=== PATIENT | male | born 1965 | race Caucasian/White ===

== ENCOUNTER 2018-01-06 10:32 | Emergency (ER) | payer MEDICAID ==
[~2018-01-06] VITALS: Ht 177.8 cm; Wt 90.7 kg
[2018-01-06 10:37] VITALS: BP_SYST 120
[2018-01-06] MEDS ORDERED: NACL 0.9% 1,000 ML IV ONE (11:00)
[2018-01-06] MEDS ORDERED: MORPHINE 4 MG/ML INJ. SYRINGE IVP ONE (11:00)
[2018-01-06] MEDS ORDERED: TAMSULOSIN HCL 0.4 MG CAP PO ONE (12:15)
[2018-01-06] MEDS ORDERED: LACTULOSE 20 GM/30 ML UDC PO ONE (12:30)
[2018-01-06 13:05] VITALS: BP_SYST 120
[2018-01-06 13:20] LABS: BILIRUBIN,URINE NEGATIVE (NEGATIVE); BLOOD, URINE NEGATIVE (NEGATIVE); CLARITY/URINE CLEAR (CLEAR); COLOR,URINE YELLOW (YELLOW); GLUCOSE,URINE NEGATIVE (NEGATIVE); KETONES,URINE NEGATIVE (NEGATIVE); LEUKOCYTE ESTERASE ,URINE NEGATIVE (NEGATIVE); NITRITE, URINE NEGATIVE (NEGATIVE); PROTEIN URINE NEGATIVE (NEGATIVE); UROBILINOGEN,URINE 0.2 (0.2-1.0)
== END 2018-01-06 13:05 | disposition home or self-care (01) ==
LOC: SED 10:32
DX: R33.9 Retention of urine, unspecified (principal); K59.00 Constipation, unspecified
CPT/HCPCS: 74176; 81003; 96374; 99285; J2270; J7030

== ENCOUNTER 2018-07-29 03:07 | Emergency (ER) | payer MEDICAID ==
[~2018-07-29] VITALS: Ht 177.8 cm; Wt 86.2 kg
[2018-07-29 03:27] VITALS: BP_SYST 130
[2018-07-29] MEDS ORDERED: AMPICILLIN SODIUM/SULBACTAM NA 3 GM in NS 100 ML IV ONE (03:45)
[2018-07-29] MEDS ORDERED: KETOROLAC TROMETHAMINE 30 MG VIAL IVP ONE (03:45)
[2018-07-29] MEDS ORDERED: AMPICILLIN SODIUM/SULBACTAM NA 3 GM VIAL ONE (04:05)
[2018-07-29 06:06] VITALS: BP_SYST 132
== END 2018-07-29 06:06 | disposition home or self-care (01) ==
LOC: SED 03:07
DX: L03.115 Cellulitis of right lower limb (principal); Z87.442 Personal history of urinary calculi; Z90.49 Acquired absence of other specified parts of digestive tract
CPT/HCPCS: 96365; 96375; 99283; J0295; J1885

== ENCOUNTER 2018-12-01 12:06 | Emergency (ER) | payer MEDICAID ==
[~2018-12-01] VITALS: Ht 177.8 cm; Wt 86.2 kg
[2018-12-01 12:06] VITALS: BP_SYST 129
--- NOTE | 2018-12-01 12:22 | NUR ---
Patient to ER bed 08 to gown for evaluation. Side rails up.
--- NOTE | 2018-12-01 12:24 | NUR ---
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
--- NOTE | 2018-12-01 12:27 | NUR ---
Dr Michel at bedside examining patient
[2018-12-01] MEDS ORDERED: IBUPROFEN 800 MG TABLET PO ONE (12:30)
[2018-12-01 12:47] VITALS: BP_SYST 122
--- NOTE | 2018-12-01 12:50 | NUR ---
Patient given written and verbal discharge instructions and verbalizes understanding. ER MD discussed with patient the results and treatment provided. Patient in stable condition. ID arm band removed. Rx of Ibuprofen given. Patient educated on pain management and to follow up with PMD. Pain Scale 5/10 tolerable for patient. Opportunity for questions provided and answered. Medication side effect fact sheet provided.
== END 2018-12-01 12:50 | disposition home or self-care (01) ==
LOC: SED 12:06
DX: M25.561 Pain in right knee (principal); R03.0 Elevated blood-pressure reading, without diagnosis of hypertension; Z87.442 Personal history of urinary calculi
CPT/HCPCS: 99282

== ENCOUNTER 2020-03-19 03:14 | Emergency (ER) | payer MEDICAID ==
[~2020-03-19] VITALS: Ht 177.8 cm; Wt 90.7 kg
[2020-03-19 03:40] VITALS: BP_SYST 139
[2020-03-19] MEDS ORDERED: IBUPROFEN 800 MG TABLET PO ONE (04:15)
[2020-03-19 04:52] VITALS: BP_SYST 126
== END 2020-03-19 04:52 | disposition home or self-care (01) ==
LOC: SED 03:14
DX: M25.511 Pain in right shoulder (principal); Z90.49 Acquired absence of other specified parts of digestive tract
CPT/HCPCS: 73030; 99283

== ENCOUNTER 2020-10-16 22:04 | Emergency (ER) | payer MEDICAID ==
[~2020-10-16] VITALS: Ht 177.8 cm; Wt 90.7 kg
[2020-10-16 22:10] VITALS: BP_SYST 157
[2020-10-16] MEDS ORDERED: IBUP-1969 PO (22:31)
[2020-10-16] MEDS ORDERED: CEPH250C PO (22:31)
[2020-10-16 22:36] VITALS: BP_SYST 157
== END 2020-10-16 22:36 | disposition home or self-care (01) ==
LOC: SED 22:04
DX: L03.114 Cellulitis of left upper limb (principal); Z87.442 Personal history of urinary calculi; W57.XXXA Bitten or stung by nonvenomous insect and other nonvenomous arthropods, initial encounter; Y93.89 Activity, other specified; Y92.89 Other specified places as the place of occurrence of the external cause; Y99.8 Other external cause status
CPT/HCPCS: 99283

== ENCOUNTER 2021-03-01 21:28 | Emergency (ER) | payer MEDICAID, SELFPAY ==
[~2021-03-01] VITALS: Ht 177.8 cm; Wt 90.7 kg
[~2021-03-01 21:28] MED LIST: CEPH250C PO; IBUP-1969 PO
[2021-03-01 22:00] VITALS: BP_SYST 151
--- NOTE | 2021-03-01 22:20 | NUR ---
PT TO REMAIN IN ER TENT UNTIL ER BED BECOMES AVAILABLE.
--- NOTE | 2021-03-01 22:25 | NUR ---
PT AAO AND AMBULATORY REPORTING WORSENING COUGH AND BODY ACHES FOR THE LAST 4 DAYS. PT NEEDS COVID TEST TO RETURN TO WORK. V/S STABLE AND SPO2 97-99%.
--- NOTE | 2021-03-01 22:38 | NUR ---
DR. ANNE TO TENT TO ASSESS.
[2021-03-01] MEDS ORDERED: ALBMDI INH (23:47)
[2021-03-01] MEDS ORDERED: PROM473S6 PO (23:47)
[2021-03-01 23:55] VITALS: BP_SYST 151
--- NOTE | 2021-03-01 23:59 | NUR ---
Patient given written and verbal discharge instructions and verbalizes understanding. DR. DAYANA VO MD discussed with patient the results and treatment provided. Patient in stable condition. ID arm band removed. Rx PER MD. Patient educated on pain management and to follow up with PMD. Pain Scale 0/10. Opportunity for questions provided and answered. Medication side effect fact sheet provided.
== END 2021-03-01 23:59 | disposition home or self-care (01) ==
LOC: SED 21:28
DX: J20.8 Acute bronchitis due to other specified organisms (principal); R00.2 Palpitations; F12.90 Cannabis use, unspecified, uncomplicated; Z79.899 Other long term (current) drug therapy; Z20.822 Contact with and (suspected) exposure to COVID-19
CPT/HCPCS: 36415; 71045; 93005; 99284

== ENCOUNTER 2022-05-14 08:06 | Emergency (ER) | payer MEDICAID ==
[~2022-05-14] VITALS: Ht 177.8 cm; Wt 68.0 kg
[~2022-05-14 08:06] MED LIST changes: +ALBMDI INH; +PROM473S6 PO
--- NOTE | 2022-05-14 08:25 | NUR ---
Patient to ER bed 7 to gown for evaluation. Side rails up. Report given to .
[2022-05-14 08:29] VITALS: BP_SYST 149
--- NOTE | 2022-05-14 08:30 | NUR ---
ER Dr. Edwards at bedside examining patient.
--- NOTE | 2022-05-14 08:33 | NUR ---
RECEIVED PT FROM NINA HAYDEN. PT BIBS FOR C/O AB PAIN TO RIGHT QUADRANT, NAUSEA X 1 DAY. PT IS AAOX4. ON R/A. SKIN WARM, INTACT. SITE WNL. SIDERAILS UP X2.
[2022-05-14] MEDS ORDERED: MORPHINE 4 MG INJ. 4 MG/ML VIAL IVP ONE ×2 (08:45→12:15)
--- NOTE | 2022-05-14 08:55 | NUR ---
# 20 gauge angiocath placed toRFA. Use of asceptic technique. Opsite placed over site. Blood return noted. Flushed with 10 cc of normal saline. No evidence of infiltration noted. Patient tolerated well.
[2022-05-14 09:16] LABS: BASOPHILS # (AUTO) 0.1 K/uL (0.0-0.2); EOSINOPHILS # (AUTO) 0.2 K/uL (0.0-0.4); HEMATOCRIT 45.7 % (36-54); HEMOGLOBIN 15.5 g/dL (14.0-18.0); LYMPHOCYTES # (AUTO) 0.8 K/uL (1.0-5.5); LYMPHOCYTES % (AUTO) 13.5 % (20.5-51.5); MEAN CORPUSCULAR HEMOGLOBIN 31 pg (27-31); MEAN CORPUSCULAR HGB CONC 34 % (32-36); MEAN CORPUSCULAR VOLUME 91 fL (79.0-98.0); MONOCYTES # (AUTO) 0.7 K/uL (0.0-1.0); NEUTROPHILS # (AUTO) 4.4 K/uL (1.8-7.7); NEUTROPHILS % (AUTO) 71.5 % (40.0-70.0); PLATELET COUNT (AUTO) 203 K/uL (130-430); RED BLOOD CELL COUNT(AUTO) 5.04 MIL/uL (4.2-6.2); RED CELL DISTRIBUTION WIDTH 13.7 % (9.0-15.0); WHITE BLOOD COUNT (AUTO) 6.1 K/uL (4.8-10.8)
--- NOTE | 2022-05-14 09:24 | NUR ---
MORPHINE 4MG IVP GIVEN FOR AB PAIN 9.10. URINE OBTAINED.
[2022-05-14 09:32] LABS: CALCIUM 8.7 mg/dL (8.4-11.0); CREATININE 1.08 mg/dL (0.55-1.30)
[2022-05-14 09:49] LABS: ALBUMIN 3.6 g/dL (3.4-4.8)
[2022-05-14 09:54] LABS: BILIRUBIN,URINE NEGATIVE (NEGATIVE); BLOOD, URINE 1+ (NEGATIVE); CLARITY/URINE CLEAR (CLEAR); COLOR,URINE YELLOW (YELLOW); GLUCOSE,URINE NEGATIVE (NEGATIVE); KETONES,URINE NEGATIVE (NEGATIVE); LEUKOCYTE ESTERASE ,URINE NEGATIVE (NEGATIVE); NITRITE, URINE NEGATIVE (NEGATIVE); PROTEIN URINE NEGATIVE (NEGATIVE); UROBILINOGEN,URINE 0.2 (0.2-1.0)
[2022-05-14 10:49] LABS: BACTERIA,URINE None Seen /HPF (None Seen); MUCUS,URINE None Seen /LPF (None Seen); WBC,URINE 0-3 /HPF (0-3)
[2022-05-14] MEDS ORDERED: NACL 0.9% 1,000 ML IV ONE (12:15)
--- NOTE | 2022-05-14 12:27 | NUR ---
Pt medicated as ordered, well tolerated
[2022-05-14] MEDS ORDERED: HYDR-3919 PO (12:29)
[2022-05-14 12:50] VITALS: BP_SYST 133
--- NOTE | 2022-05-14 12:52 | NUR ---
Patient given written and verbal discharge instructions and verbalizes understanding. ER MD discussed with patient the results and treatment provided. Patient in stable condition. ID arm band removed. IV catheter removed intact and dressing applied, no active bleeding. Rx of NORCO given. Patient educated on pain management and to follow up with PMD. Pain Scale 0/10. Opportunity for questions provided and answered. Medication side effect fact sheet provided.
== END 2022-05-14 12:52 | disposition home or self-care (01) ==
LOC: SED 08:06
DX: K42.9 Umbilical hernia without obstruction or gangrene (principal); R10.9 Unspecified abdominal pain; Z79.899 Other long term (current) drug therapy; Z20.822 Contact with and (suspected) exposure to COVID-19
CPT/HCPCS: 99285; 74177; 96374; 96361; 87426; 80053; 81000; 83690; 85025; 36415; 76376; 96376; J2270; Q9967; J7030

== ENCOUNTER 2023-06-26 10:28 | Emergency (ER) | payer MEDICAID ==
[~2023-06-26] VITALS: Ht 177.8 cm; Wt 90.7 kg
[~2023-06-26 10:28] MED LIST changes: +HYDR-3919 PO
[2023-06-26 10:29] VITALS: BP_SYST 131; PULSE 68; RESP 20; TEMP 97.8; O2SAT 98
[2023-06-26] MEDS ORDERED: NIRM1TAB PO (12:36)
== END 2023-06-26 12:50 | disposition home or self-care (01) ==
LOC: SED 10:28
DX: U07.1 COVID-19 (principal); R05.9 Cough, unspecified; R09.81 Nasal congestion; M79.10 Myalgia, unspecified site; F17.200 Nicotine dependence, unspecified, uncomplicated; Z79.899 Other long term (current) drug therapy
CPT/HCPCS: 99283

== ENCOUNTER 2024-04-03 20:29 | Emergency (ER) | payer MEDICAID ==
[~2024-04-03] VITALS: Ht 177.8 cm; Wt 90.7 kg
[~2024-04-03 20:29] MED LIST changes: +NIRM1TAB PO; +PROM473S4 PO; -PROM473S6 PO
[2024-04-03 20:32] VITALS: BP_SYST 115; PULSE 116; RESP 19; TEMP 98.4; O2SAT 86
[2024-04-03 21:31] LABS: BASOPHILS # (AUTO) 0.2 K/uL (0.0-0.2); BASOPHILS % (AUTO) 2.5 % (0.0-2.0); EOSINOPHILS # (AUTO) 0.1 K/uL (0.0-0.4); EOSINOPHILS % (AUTO) 1.3 % (0.0-4.0); HEMATOCRIT 50.5 % (36-54); HEMOGLOBIN 17.3 g/dL (14.0-18.0); LYMPHOCYTES % (AUTO) 20.9 % (20.5-51.5); MEAN CORPUSCULAR HEMOGLOBIN 31 pg (27-31); MEAN CORPUSCULAR HGB CONC 34 % (32-36); MEAN CORPUSCULAR VOLUME 91 fL (79.0-98.0); MONOCYTES # (AUTO) 0.9 K/uL (0.0-1.0); MONOCYTES % (AUTO) 9.8 % (1.7-9.3); NEUTROPHILS # (AUTO) 6.2 K/uL (1.8-7.7); NEUTROPHILS % (AUTO) 65.5 % (40.0-70.0); PLATELET COUNT (AUTO) 223 K/uL (130-430); RED BLOOD CELL COUNT(AUTO) 5.57 MIL/uL (4.2-6.2); RED CELL DISTRIBUTION WIDTH 13.3 % (9.0-15.0); WHITE BLOOD COUNT (AUTO) 9.4 K/uL (4.8-10.8)
[2024-04-03 21:37] LABS: ALANINE AMINOTRANSFERASE 46 U/L (12-78); ALBUMIN 3.6 g/dL (3.4-4.8); ANION GAP 10 (5-15); ASPARTATE AMINOTRANSFERASE 41 U/L (10-37); CALCIUM 10.1 mg/dL (8.4-11.0); CARBON DIOXIDE 25 mmol/L (23-29); CHLORIDE 100 mmol/L (98-107); CREATININE 1.83 mg/dL (0.55-1.30); GFR AFRICAN AMERICAN 49 mL/min (>90); GLUCOSE 119 mg/dL (74-106); POTASSIUM 3.9 mmol/L (3.5-5.1); SODIUM SERUM 135 mmol/L (136-145); TOTAL PROTEIN, SERUM 7.4 g/dL (6.4-8.3); UREA NITROGEN, BLOOD 22 mg/dL (8-21)
[2024-04-03 21:38] LABS: GFR NON AFRICAN-AMERICAN 41 mL/min (>90)
[2024-04-03 21:39] LABS: COVID19 ANTIGEN SOFIA FIA NEGATIVE (NEGATIVE); INFLUENZA TYPE A Negative (NEGATIVE); INFLUENZA TYPE B NEGATIVE (NEGATIVE)
[2024-04-03] MEDS ORDERED: iohexoL 350 mgI/mL, 100 ML INFUS..BTL IV ONE (22:12)
[2024-04-03] MEDS: NACL 0.9% 1,000 ML IV ONE (22:40)
[2024-04-03] MEDS: ACETAMINOPHEN 500 MG TABLET PO ONE (22:41)
[2024-04-03] MEDS: METOCLOPRAMIDE HCL 10 MG/2 ML VIAL IVP ONE (22:41)
[2024-04-04 02:40] VITALS: BP_SYST 130; PULSE 68; RESP 22; TEMP 98; O2SAT 94
== END 2024-04-04 02:40 | disposition home or self-care (01) ==
LOC: SED 20:29
DX: R06.02 Shortness of breath (principal); R51.9 Headache, unspecified; R05.9 Cough, unspecified; R00.0 Tachycardia, unspecified; R07.89 Other chest pain; J45.909 Unspecified asthma, uncomplicated; Z20.822 Contact with and (suspected) exposure to COVID-19; Z87.442 Personal history of urinary calculi; Z79.899 Other long term (current) drug therapy; Z79.2 Long term (current) use of antibiotics
CPT/HCPCS: 99285; 70450; 96374; 71045; 87426; 80053; 83880; 85025; 85379; 84484; 36415; 93005; 71275; 87804 ×2; Q9967; J2765; J7030